=== PATIENT | male | born 1975 | race Caucasian/White ===

== ENCOUNTER 2016-09-29 17:25 | Emergency (ER) | payer OTHER ==
[~2016-09-29 17:25] MED LIST: IBUPROFEN800 MG PO; KEFLEX500 MG PO
== END 2016-09-29 17:47 | disposition home or self-care (01) ==
LOC: CFTX 17:25
DX: H10.32 Unspecified acute conjunctivitis, left eye (principal); F17.210 Nicotine dependence, cigarettes, uncomplicated
CPT/HCPCS: 99283